=== PATIENT | male | born 1995 | race Caucasian/White ===

== ENCOUNTER 2018-10-20 03:21 | Emergency (ER) | payer OTHER ==
[~2018-10-20] VITALS: Ht 170.2 cm; Wt 70.3 kg
[~2018-10-20 03:21] MED LIST: ZYRTEC
[2018-10-20] MEDS ORDERED: KEFLEX500 MG PO (04:58)
== END 2018-10-20 05:02 | disposition home or self-care (01) ==
LOC: ER 03:21
DX: S61.217A Laceration without foreign body of left little finger without damage to nail, initial encounter (principal); W45.8XXA Other foreign body or object entering through skin, initial encounter; Y93.89 Activity, other specified; Y92.89 Other specified places as the place of occurrence of the external cause; Y99.8 Other external cause status

== ENCOUNTER 2020-07-23 14:06 | Emergency (ER) | payer OTHER ==
[~2020-07-23] VITALS: Ht 170.2 cm; Wt 71.7 kg
[~2020-07-23 14:06] MED LIST changes: +KEFLEX500 MG PO
== END 2020-07-23 16:00 | disposition home or self-care (01) ==
LOC: ER 14:06
DX: S61.221A Laceration with foreign body of left index finger without damage to nail, initial encounter (principal); W26.0XXA Contact with knife, initial encounter; Y93.89 Activity, other specified; Y92.89 Other specified places as the place of occurrence of the external cause; Y99.8 Other external cause status